=== PATIENT | female | born 1970 | race Caucasian/White ===

== ENCOUNTER 2017-03-30 09:16 | Emergency (ER) | payer MEDICAID ==
[2017-03-30 09:28] VITALS: TEMP 98.6
--- NOTE | 2017-03-30 09:52 | ED PDOC ---
Arrival/HPI - General Chief Complaint: Lower Extremity Problem/Injury Time Seen by Provider: 03/30/17 09:31 Historian: Patient, Family (son ) - History of Present Illness Narrative History of Present Illness (Text): 03/30/17 09:33 A 46 year old patient, accompanied by son who was the in room nail specialist, who denies any significant past medical history, presents to the emergency department for pain and swelling in lower extremities. The patient reports the pain began 7 days ago and the swelling began 4 days ago. She attempted to go see her primary care physician, Dr. Ksenia Harper, but her office is temporarily closed. She did come into contact with her doctor who did prescribe her with Augmentin and Lasix and was instructed to go to the emergency department if symptoms worsened. The patient states the medications did help her, but while she was out running some minor errands yesterday, the pain returned. She denies and fever, chest pain, shortness of breath, or any other complaints at this time. Time/Duration: 1 week Symptom Onset: Sudden Symptom Course: Unchanged, Worsening Activities at Onset: Light Context: Walking, Home Past Medical History - Provider Review Nursing Documentation Reviewed: Yes - Infectious Disease Hx of Infectious Diseases: None - Cardiac Hx Cardiac Disorders: No - Pulmonary Hx Respiratory Disorders: No - Neurological Hx Neurological Disorder: No - HEENT Hx HEENT Disorder: No - Renal Hx Renal Disorder: No - Endocrine/Metabolic Hx Endocrine Disorders: Yes Hx Hypothyroidism: Yes - Hematological/Oncological Hx Blood Disorders: No - Integumentary Hx Dermatological Disorder: No - Musculoskeletal/Rheumatological Hx Musculoskeletal Disorders: No - Gastrointestinal Hx Gastrointestinal Disorders: No - Genitourinary/Gynecological Hx Genitourinary Disorders: No - Psychiatric Hx Psychophysiologic Disorder: No Hx Substance Use: No - Surgical History Hx Gastric Bypass Surgery: Yes Hx Thyroidectomy: Yes - Anesthesia Hx Anesthesia: Yes Hx Anesthesia Reactions: No Family/Social History - Physician Review Nursing Documentation Reviewed: Yes Family/Social History: No Known Family HX Smoking Status: Never Smoked Hx Alcohol Use: No Hx Substance Use: No Allergies/Home Meds Allergies/Adverse Reactions: Allergies No Known Allergies Allergy (Verified 03/30/17 09:20) Home Medications: Home Meds Medication Instructions Recorded Confirmed Levothyroxine [Synthroid] 175 mcg PO DAILY 03/30/17 03/30/17 Review of Systems - Physician Review All systems were reviewed & negative as marked: Yes - Review of Systems Constitutional: absent: Fevers Respiratory: absent: SOB Cardiovascular: absent: Chest Pain Musculoskeletal: Joint Swelling (bilateral ankle), Other (lower extremity swelling) Physical Exam Vital Signs Reviewed: Yes Vital Signs Temp Pulse Resp BP Pulse Ox 03/30/17 10:30 73 16 103/53 L 100 03/30/17 09:25 98.6 F 80 18 98/71 L 99 Temperature: Afebrile Blood Pressure: Hypotensive Pulse: Regular Respiratory Rate: Normal Appearance: Positive for: Well-Appearing, Non-Toxic, Comfortable Pain Distress: None Mental Status: Positive for: Alert and Oriented X 3 - Systems Exam Head: Present: Atraumatic, Normocephalic Pupils: Present: PERRL Extroacular Muscles: Present: EOMI Conjunctiva: Present: Normal Mouth: Present: Moist Mucous Membranes Neck: Present: Normal Range of Motion Respiratory/Chest: Present: Clear to Auscultation, Good Air Exchange. No: Respiratory Distress, Accessory Muscle Use Cardiovascular: Present: Regular Rate and Rhythm, Normal S1, S2. No: Murmurs Abdomen: Present: Normal Bowel Sounds. No: Tenderness, Distention, Peritoneal Signs Back: Present: Normal Inspection Upper Extremity: Present: Normal Inspection. No: Cyanosis, Edema Lower Extremity: Present: Swelling (bilateral lower extremity swelling ) Neurological: Present: GCS=15, CN II-XII Intact, Speech Normal Skin: Present: Warm, Dry, Normal Color. No: Rashes Psychiatric: Present: Alert, Oriented x 3, Normal Insight, Normal Concentration Medical Decision Making ED Course and Treatment: 03/30/17 09:54 Impression: A 46 year old female with bilateral lower extremity swelling. Differential Diagnosis included but are not limited to: Plan: -- Lower Extremity US -- Labs -- Acetaminophen -- Reassess and disposition Progress Notes: 03/30/17 10:46 pt reassesed:L smiling in nad, takin gpo. lungs clear, no cardiopulm complaints. no shortness of breth. dvt study neg. no leukocytosis. (+)pulses, feet warm. advise outpt follow up return precautions. sat 100% ra 03/30/17 10:48 - Lab Interpretations Lab Results: 03/30/17 09:55 03/30/17 09:55 Lab Results 03/30/17 10:50: Urine Color Red, Urine Appearance Bloody, Urine pH 6.0, Ur Specific Price 1.015, Urine Protein 100 H, Urine Glucose (UA) Negative, Urine Ketones Negative, Urine Blood Large H, Urine Nitrate Negative, Urine Bilirubin Negative, Urine Urobilinogen 1.0 H, Ur Leukocyte Esterase Small H, Urine RBC Pending, Urine WBC Pending, Urine HCG, Qual Pending 03/30/17 09:55: Sodium 142, Potassium 4.0, Chloride 103, Carbon Dioxide 28, Anion Gap 15, BUN 19, Creatinine 0.5 L, Est GFR ( Amer) > 60, Est GFR ( Non-Af Amer) > 60, Random Glucose 96, Calcium 8.3 L, Total Bilirubin 0.5, AST 24 , ALT 27, Alkaline Phosphatase 80, Total Protein 7.2, Albumin 3.9, Globulin 3.3 , Albumin/Globulin Ratio 1.2 03/30/17 09:55: PT 13.0 H, INR 1.18 H, APTT 33.3 03/30/17 09:55: WBC 5.6, RBC 4.37, Hgb 11.1 L, Hct 33.6 L, MCV 76.9 L, MCH 25.4 , MCHC 33.0, RDW 14.3, Plt Count 321, MPV 9.7, Gran % 65.8, Lymph % (Auto) 24.3 , [place] % (Auto) 7.0 H, Eos % (Auto) 2.7, Baso % (Auto) 0.2, Gran # 3.65, Lymph # 1.4, [place] # 0.4, Eos # 0.2, Baso # 0.01 - RAD Interpretation Radiology Orders: 03/30/17 09:38 DUPLEX LOWER EXTRM VEIN BILAT [US] Stat - Medication Orders Current Medication Orders: Discontinued Medications Acetaminophen (Tylenol 325mg Tab) 975 mg PO STAT STA Stop: 03/30/17 09:40 Last Admin: 03/30/17 09:59 Dose: 975 mg - Scribe Statement The provider has reviewed the documentation as recorded by the Ruthy Payton Provider Scribe Attestation: All medical record entries made by the Scribe were at my direction and personally dictated by me. I have reviewed the chart and agree that the record accurately reflects my personal performance of the history, physical exam, medical decision making, and the department course for this patient. I have also personally directed, reviewed, and agree with the discharge instructions and disposition. Disposition/Present on Arrival - Present on Arrival Any Indicators Present on Arrival: No History of DVT/PE: No History of Uncontrolled Diabetes: No Urinary Catheter: No History of Decub. Ulcer: No History Surgical Site Infection Following: None - Disposition Have Diagnosis and Disposition been Completed?: Yes Diagnosis: Leg pain, Leg swelling Disposition: HOME/ ROUTINE Disposition Time: 10:47 Condition: STABLE Discharge Instructions (ExitCare): Leg Edema (ED), Leg Pain (ED) Additional Instructions: please follow up with your doctor. return to emergency room with worsening symptoms or concerns. Referrals: [facility] [Outside] - Follow up with primary [facility] [Outside] - Follow up with primary Forms: [facility] (Indonesian), WORK NOTE
[2017-03-30 10:11] LABS: BASO # 0.01 K/mm3 (0.0-2.0); BASO % 0.2 % (0.0-3.0); EOS # 0.2 (0.0-0.7); EOS % 2.7 % (1.5-5.0); GRAN # 3.65 (1.4-6.5); GRAN % 65.8 % (50.0-68.0); HEMATOCRIT 33.6 % (36.0-48.0); LYMPH # 1.4 (1.2-3.4); LYMPH % 24.3 % (22.0-35.0); MEAN CELL VOLUME 76.9 fl (80.0-105.0); MEAN CORPUSCULAR HEMOGLOBIN 25.4 pg (25.0-35.0); MEAN PLATELET VOLUME 9.7 fl (7.0-11.0); MONO # 0.4 (0.1-0.6); RED CELL DISTRIBUTION WIDTH 14.3 % (11.5-14.5); WHITE BLOOD COUNT 5.6 10^3/ul (4.5-11.0)
[2017-03-30 10:20] LABS: ALB/GLOB RATIO 1.2 (1.1-1.8); ALKALINE PHOSPHATASE 80 U/L (38-126); ALT/SGPT 27 U/L (7-56); AST/SGOT 24 U/L (14-36); BILIRUBIN,TOTAL 0.5 mg/dL (0.2-1.3); BLOOD UREA NITROGEN 19 mg/dL (7-21); CALCIUM 8.3 mg/dL (8.4-10.5); CARBON DIOXIDE 28 mmol/L (21-33); CHLORIDE 103 mmol/L (98-107); GFR AFRICAN-AMERICAN > 60; GLUCOSE,RANDOM 96 mg/dL (70-110); SODIUM 142 mmol/L (132-148); TOTAL PROTEIN 7.2 g/dL (5.8-8.3)
[2017-03-30 10:28] LABS: INR 1.18 (0.93-1.08); PARTIAL THROMBOPLASTIN TIME 33.3 Seconds (25.1-36.5)
[2017-03-30 10:40] VITALS: BP 103/53; PULSE 73; RESP 16; O2SAT 100
[2017-03-30 10:57] LABS: URINE BILIRUBIN NEGATIVE (NEGATIVE); URINE BLOOD LARGE (NEGATIVE); URINE GLUCOSE (UA) NEGATIVE (NEGATIVE); URINE KETONE NEGATIVE (NEGATIVE); URINE LEUKOCYTE ESTERASE SMALL Leu/uL (NEGATIVE); URINE PROTEIN 100 mg/dL (<30 mg/dL)
[2017-03-30 10:58] LABS: URINE APPEARANCE BLOODY (CLEAR); URINE COLOR RED (YELLOW)
[2017-03-30 11:05] LABS: URINE BACTERIA FEW (NEG); URINE RBC TNTC /hpf (0-2); URINE WBC 0 - 2 /hpf (0-6)
--- NOTE | 2017-03-30 11:42 | US ---
HISTORY: Leg pain and swelling. Evaluate for DVT PHYSICIAN(S): Magdaleno Tavarez MD. TECHNIQUE: Duplex sonography and color-flow Doppler with graded compression were used to evaluate the deep venous systems of both lower extremities. FINDINGS: The visualized deep venous systems of both lower extremities are sonographically normal and compressible. Normal wave forms and augmentation are seen. There is no sonographic evidence for deep venous thrombosis in the visualized segments of both lower extremities. IMPRESSION: No sonographic evidence for deep venous thrombosis in the visualized segments of both lower extremities.
== END 2017-03-30 10:59 | disposition home or self-care (01) ==
LOC: ED 09:16
DX: M79.89 Other specified soft tissue disorders (principal); M79.662 Pain in left lower leg; M79.661 Pain in right lower leg; E03.9 Hypothyroidism, unspecified; Z98.84 Bariatric surgery status